=== PATIENT | male | born 1950 | race Two or more races ===

== ENCOUNTER 2017-03-14 08:52 | Outpatient (CLI) | payer OTHER ==
[~2017-03-14 08:52] MED LIST: ASPI-1009 PO
[2017-03-14 11:01] LABS: FERRITIN 50 NG/ML (26-388)
[2017-03-14 11:02] LABS: % IRON SATURATION 27 % (11-46); IRON 92 UG/DL (53-167); TOTAL IRON BINDING CAPACITY 335 UG/DL (259-388)
[2017-03-15 11:14] LABS: VITAMIN D, 25-HYDROXY 24.3 ng/mL (30.0-100.0)
== END 2017-03-14 23:59 | disposition home or self-care (01) ==
LOC: 64 CT 08:52
PROVIDERS: ATTEND Internal Medicine
DX: N40.0 Benign prostatic hyperplasia without lower urinary tract symptoms (principal); K76.9 Liver disease, unspecified; D69.6 Thrombocytopenia, unspecified; E53.9 Vitamin B deficiency, unspecified; R73.01 Impaired fasting glucose; R10.10 Upper abdominal pain, unspecified
CPT/HCPCS: 36415; 74176; 82306; 82607; 82728; 83540; 83550; 86340

== ENCOUNTER 2017-04-13 08:47 | Day surgery (SDC) | payer OTHER ==
[~2017-04-13] VITALS: Ht 167.6 cm; Wt 75.0 kg
[2017-04-13 08:55] VITALS: BP 138/75
[2017-04-13] MEDS ORDERED: vitamin b 12 PO (09:03)
[2017-04-13] MEDS ORDERED: VITAMIN D PO (09:04)
[2017-04-13] MEDS ORDERED: b complex PO (09:04)
[2017-04-13] MEDS ORDERED: GLUCOSAMINE PO (09:05)
[2017-04-13 10:20] VITALS: BP 116/68
[2017-04-13 10:30] VITALS: BP 112/67
[2017-04-13 10:40] VITALS: BP 121/72
[2017-04-13 10:50] VITALS: BP 109/72
[2017-04-14 11:14] LABS: AFP,SERUM, TUMOR MARKER 3.3 ng/mL (0.0-8.3); CARCINOEMBRYONIC ANTIGEN 2.7 ng/mL (0.0-4.7)
== END 2017-04-13 11:20 | disposition home or self-care (01) ==
LOC: GI LAB 08:47
PROVIDERS: ATTEND Internal Medicine Gastroenterology
DX: R93.3 Abnormal findings on diagnostic imaging of other parts of digestive tract (principal); K63.89 Other specified diseases of intestine; G47.33 Obstructive sleep apnea (adult) (pediatric); Z79.82 Long term (current) use of aspirin; Z79.899 Other long term (current) drug therapy; Z95.2 Presence of prosthetic heart valve; Z98.890 Other specified postprocedural states; Z87.891 Personal history of nicotine dependence; Z72.89 Other problems related to lifestyle
CPT/HCPCS: 36415; 45378; 82103; 82378; 86301; 99152; J7030; A4620; G0500

== ENCOUNTER 2017-06-02 11:51 | Outpatient (CLI) | payer OTHER ==
[~2017-06-02 11:51] MED LIST changes: +GLUCOSAMINE PO; +VITAMIN D PO; +b complex PO; +vitamin b 12 PO
== END 2017-06-02 23:59 | disposition home or self-care (01) ==
LOC: CARD DIAG 11:51
PROVIDERS: ATTEND Internal Medicine Cardiovascular Disease
DX: I08.2 Rheumatic disorders of both aortic and tricuspid valves (principal); E78.5 Hyperlipidemia, unspecified; R53.83 Other fatigue
CPT/HCPCS: 93306

== ENCOUNTER 2017-08-02 07:52 | Outpatient (CLI) | payer OTHER ==
[~2017-08-02] VITALS: Ht 167.6 cm; Wt 72.7 kg
[2017-08-02] VITALS (9 sets, daily range): BP systolic 122–161; BP diastolic 76–82
== END 2017-08-02 23:59 | disposition home or self-care (01) ==
LOC: RAD 07:52
PROVIDERS: ATTEND Internal Medicine Cardiovascular Disease
DX: R07.9 Chest pain, unspecified (principal); R94.39 Abnormal result of other cardiovascular function study
CPT/HCPCS: 78452; 93017; A9500

== ENCOUNTER 2017-11-24 08:15 | Outpatient (CLI) | payer OTHER | END 2017-11-24 23:59 | disposition home or self-care (01) | LOC: RAD 08:15 | PROVIDERS: ATTEND Internal Medicine Gastroenterology | DX: K76.0 Fatty (change of) liver, not elsewhere classified (principal); Z79.82 Long term (current) use of aspirin; Z87.891 Personal history of nicotine dependence | CPT/HCPCS: 76700 ==

== ENCOUNTER 2018-02-22 08:26 | Outpatient (CLI) | payer OTHER ==
[2018-02-22 09:25] LABS: CLARITY,URINE CLEAR (Clear); COLOR,URINE YELLOW (Yellow); GLUCOSE, URINE NEGATIVE (Neg); KETONES,URINE NEGATIVE (Neg); LEUKOCYTE ESTERASE ,URINE NEGATIVE (Neg); NITRITES, URINE NEGATIVE (Neg); OCCULT BLOOD,URINE SMALL (Neg); PROTEIN,URINE NEGATIVE (Neg); UROBILINOGEN,URINE 0.2 E.U/dL (0.2-1.0)
[2018-02-22 09:25] LABS: BASOPHILS # (AUTO) 0.1 X10'3 (0-0.2); EOSINOPHILS # (AUTO) 0.2 X10'3 (0-0.9); EOSINOPHILS % (AUTO) 4.7 % (0-6); HEMATOCRIT 48.7 % (42.0-52.0); HEMOGLOBIN 16.4 g/dl (14.0-17.9); LYMPHOCYTES # (AUTO) 1.7 X10'3 (1.1-4.8); LYMPHOCYTES % (AUTO) 33.4 % (21-51); MEAN CORPUSCULAR HEMOGLOBIN 30.2 PG (27.0-31.0); MEAN CORPUSCULAR HGB CONC 33.6 % (33.0-36.5); MEAN PLATELET VOLUME 8.5 FL (7.4-10.4); MONOCYTES # (AUTO) 0.4 X10'3 (0-0.9); NEUTROPHILS # (AUTO) 2.8 X10'3 (1.8-7.7); NEUTROPHILS % (AUTO) 52.9 % (42-75); PLATELET COUNT 140 X10'3 (140-440); RED BLOOD COUNT 5.41 X10'6 (4.70-6.10); RED CELL DISTRIBUTION WIDTH 13.1 % (11.5-14.5); WHITE BLOOD COUNT 5.2 X10'3 (4.5-11.0)
[2018-02-22 09:40] LABS: HEMOGLOBIN A1C 5.6 % (4.5-6.2)
[2018-02-22 09:50] LABS: UA COLLECTION TYPE CLN CATCH MIDSTREAM
[2018-02-22 09:51] LABS: SQUAMOUS EPITHELIAL CELL,UR FEW /LPF (FEW)
[2018-02-22 09:52] LABS: BACTERIA,URINE FEW /HPF (Neg); RBC,URINE 0-2 /HPF (0-2); WBC,URINE 0-4 /HPF (0-4)
[2018-02-22 09:52] LABS: ALANINE AMINOTRANSFERASE 44 U/L (12-78); ALBUMIN 3.6 G/DL (3.4-5.0); ALKALINE PHOSPHATASE 56 IU/L (46-116); ANION GAP 7 (8-16); ASPARTATE AMINO TRANSFERASE 22 U/L (10-37); BILIRUBIN,TOTAL 0.8 MG/DL (0.1-1.0); BLOOD UREA NITROGEN 12 MG/DL (7-18); BUN/CREATININE RATIO 14.1 (5.4-32.0); CALCIUM 8.4 MG/DL (8.5-10.1); CHLORIDE 103 MMOL/L (99-107); CHOL/HDL RATIO 3.3 (0.00-4.99); CHOLESTEROL 209 MG/DL (0-200); CREATININE 0.85 MG/DL (0.60-1.10); GLUCOSE 100 MG/DL (70-104); HDL CHOLESTEROL 63 MG/DL (35-60); LDL CHOLESTEROL 135 MG/DL (50-100); POTASSIUM 4.2 MMOL/L (3.5-5.1); SODIUM 138 MMOL/L (135-145); TOTAL CARBON DIOXIDE 27.9 MMOL/L (24-32); TOTAL PROTEIN 7.1 G/DL (6.4-8.2); TRIGLYCERIDES 77 MG/DL (20-135); eGFR 90 ML/MIN
[2018-02-23 09:00] LABS: VITAMIN D, 25-HYDROXY 27.5 ng/mL (30.0-100.0)
[2018-02-25 05:16] LABS: TESTOSTERONE, FREE, DIRECT 12.1 pg/mL (6.6-18.1)
== END 2018-02-22 23:59 | disposition home or self-care (01) ==
LOC: LAB 08:26
PROVIDERS: ATTEND Internal Medicine
DX: D51.9 Vitamin B12 deficiency anemia, unspecified (principal); R51 Headache; R73.01 Impaired fasting glucose; E29.1 Testicular hypofunction; Z79.82 Long term (current) use of aspirin; Z87.891 Personal history of nicotine dependence
CPT/HCPCS: 36415; 80053; 80061; 81001; 82306; 82607; 83036; 84153; 84402; 84403; 85025

== ENCOUNTER 2018-12-10 09:50 | Outpatient (CLI) | payer MEDICARE | END 2018-12-10 23:59 | disposition home or self-care (01) | LOC: RAD 09:50 | PROVIDERS: ATTEND Internal Medicine Gastroenterology | DX: K76.89 Other specified diseases of liver (principal) | CPT/HCPCS: 76700 ==

== ENCOUNTER 2018-12-19 13:56 | Outpatient (CLI) | payer MEDICARE ==
[2018-12-19 14:35] LABS: TOTAL HEMOGLOBIN 18.2 G/dl (14.0-17.9)
== END 2018-12-19 23:59 | disposition home or self-care (01) ==
LOC: RT 13:56
PROVIDERS: ATTEND Internal Medicine
DX: J44.9 Chronic obstructive pulmonary disease, unspecified (principal); G47.33 Obstructive sleep apnea (adult) (pediatric); D75.1 Secondary polycythemia
CPT/HCPCS: 85018; 94010; 94727; 94729

== ENCOUNTER 2020-04-24 08:35 | Outpatient (CLI) | payer MEDICARE | END 2020-04-24 23:59 | disposition home or self-care (01) | LOC: RAD 08:35 | PROVIDERS: ATTEND Internal Medicine Gastroenterology | DX: K76.89 Other specified diseases of liver (principal) | CPT/HCPCS: 76700 ==